=== PATIENT | female | born 1995 | race Caucasian/White ===

== ENCOUNTER → 2024-03-31 14:01 | Outpatient (REF) | payer OTHER, SELFPAY | LOC: RAD 14:01 | PROVIDERS: ATTENDING PHYSICIAN Student in an Organized Health Care Education/Training Program; FAMILY PHYSICIAN Family Medicine | DX: D25.9 Leiomyoma of uterus, unspecified (principal) | CPT/HCPCS: 76830; 76856 ==

== ENCOUNTER 2024-07-29 06:25 | Day surgery (SDC) | payer OTHER, SELFPAY ==
[2024-06-29 10:56] LABS: % Basophils 0.6 % (0-2); % Eosinophils 5.1 % (0-6); % Immature Granulocytes 0.3 % (0-0.5); % Lymphocytes 32.1 % (20.5-51.1); % Monocytes 7.8 % (1.7-9.3); % Neutrophils 54.1 % (42.2-75.2); Absolute Eosinophils 0.4 10^3/uL (0-0.7); Absolute Lymphocytes 2.3 10^3/uL (1.2-3.4); Absolute Monocytes 0.6 10^3/uL (0.1-0.6); Absolute Neutrophils 3.8 10^3/uL (1.4-6.5); Hemoglobin 11.2 g/dL (12.0-16.0); Mean Corpuscular Hgb 28.2 pg (27.0-31.0); Mean Corpuscular Volume 88.2 fL (81.0-99.0); Mean Platelet Volume 11.1 fL (7.4-10.4); Nucleated Red Blood Cells % 0 %; Platelet Count 268 10^3/uL (130-400); Red Blood Cell Count 3.97 10^6/uL (4.20-5.40); Red Cell Dist. Width 14.4 % (11.5-14.5)
[2024-06-29 11:36] LABS: Blood Urea Nitrogen 13 mg/dl (7-17); Calcium 9.4 mg/dl (8.4-10.2); Carbon Dioxide 27 mmol/L (22-30); Chloride 102 mmol/L (98-107); Glucose 84 mg/dl (70-99); Potassium 4.7 mmol/L (3.5-5.1); Sodium 138 mmol/L (135-145); eGFR > 60.00
[2024-06-29 11:45] LABS: Beta HCG Quantitative < 2.39 mIU/ml
[2024-06-29 13:58] VITALS: BMI 28.8
[2024-07-29] VITALS (8 sets, daily range): BP systolic 114–124; BP diastolic 76–93; BMI 28.8
[2024-07-29] MEDS: TYLENOL 1000 MG PO (07:11)
[2024-07-29] MEDS: NEURONTIN 100 MG PO (07:11)
[2024-07-29] MEDS: NORMOSOL-R/PLASMALYTE-A 1000 IV (07:12)
== END 2024-07-29 09:35 | disposition home or self-care (01) ==
LOC: SDS 06:25
PROVIDERS: ATTENDING PHYSICIAN Obstetrics & Gynecology; FAMILY PHYSICIAN Family Medicine
DX: D25.0 Submucous leiomyoma of uterus (principal); N92.0 Excessive and frequent menstruation with regular cycle
CPT/HCPCS: 58561; 88305; 36415; 80048; 84702; 85025; 86850; 86900; 86901

== ENCOUNTER → 2025-03-02 14:54 | Outpatient (REF) | payer OTHER, SELFPAY | LOC: PNTC 14:54 | PROVIDERS: ATTENDING PHYSICIAN Student in an Organized Health Care Education/Training Program | DX: Z36.0 Encounter for antenatal screening for chromosomal anomalies (principal); Z36.82 Encounter for antenatal screening for nuchal translucency; O30.041 Twin pregnancy, dichorionic/diamniotic, first trimester | CPT/HCPCS: 76801; 76813 ==

== ENCOUNTER → 2025-03-30 09:12 | Outpatient (REF) | payer OTHER, SELFPAY | LOC: PNTC 09:12 | PROVIDERS: ATTENDING PHYSICIAN Student in an Organized Health Care Education/Training Program | DX: O30.042 Twin pregnancy, dichorionic/diamniotic, second trimester (principal); Z87.51 Personal history of pre-term labor; Z87.59 Personal history of other complications of pregnancy, childbirth and the puerperium; O34.12 Maternal care for benign tumor of corpus uteri, second trimester; O99.212 Obesity complicating pregnancy, second trimester; Z36.86 Encounter for antenatal screening for cervical length | CPT/HCPCS: 76805; 76810; 76817 ==

== ENCOUNTER → 2025-04-13 09:22 | Outpatient (REF) | payer OTHER, SELFPAY | LOC: PNTC 09:22 | PROVIDERS: ATTENDING PHYSICIAN Student in an Organized Health Care Education/Training Program | DX: O30.042 Twin pregnancy, dichorionic/diamniotic, second trimester (principal); Z87.51 Personal history of pre-term labor; O99.212 Obesity complicating pregnancy, second trimester; O34.12 Maternal care for benign tumor of corpus uteri, second trimester; Z87.59 Personal history of other complications of pregnancy, childbirth and the puerperium; Z36.86 Encounter for antenatal screening for cervical length | CPT/HCPCS: 76815; 76817 ==

== ENCOUNTER → 2025-04-27 13:24 | Outpatient (REF) | payer OTHER, SELFPAY | LOC: PNTC 13:24 | PROVIDERS: ATTENDING PHYSICIAN Student in an Organized Health Care Education/Training Program | DX: O30.042 Twin pregnancy, dichorionic/diamniotic, second trimester (principal); Z87.51 Personal history of pre-term labor; O99.212 Obesity complicating pregnancy, second trimester; O34.12 Maternal care for benign tumor of corpus uteri, second trimester; Z87.59 Personal history of other complications of pregnancy, childbirth and the puerperium; Z36.86 Encounter for antenatal screening for cervical length; Z36.3 Encounter for antenatal screening for malformations | CPT/HCPCS: 76811; 76812; 76817 ==